=== PATIENT | male | born 1965 | race Caucasian/White ===

== ENCOUNTER 2021-01-24 21:24 | Emergency (ER) | payer BC ==
[2021-01-24 21:36] VITALS: BP 134/88; PULSE 61; RESP 18; TEMP 97.9
[2021-01-24] MEDS ORDERED: DIPH,PERTUS(ACELL)TETVAC-LF 0.5 ML VIAL IM ONE (22:29)
[2021-01-24] MEDS ORDERED: CEPHALEXIN 500 MG CAP PO STA (22:29)
[2021-01-24] MEDS ORDERED: GELATIN SPONGE,ABSORB (LARGE) 1 EACH SPONGE TOPICAL STA (22:29)
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
== END 2021-01-24 23:00 | disposition home or self-care (01) ==
LOC: EC 21:24
DX: S61.213A Laceration without foreign body of left middle finger without damage to nail, initial encounter (principal); Z23 Encounter for immunization; W31.2XXA Contact with powered woodworking and forming machines, initial encounter
CPT/HCPCS: 90471; 90715; 99282

== ENCOUNTER 2021-08-22 13:33 | Emergency (ER) | payer BC ==
[2021-08-22 13:47] LABS: Glucose,Whole Blood 197 mg/dL (75-99)
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
== END 2021-08-22 19:54 | disposition expired ==
LOC: EDBD → MERGE 13:33 → EC 13:33
DX: I46.9 Cardiac arrest, cause unspecified (principal)
CPT/HCPCS: 31500; 36415; 99285